=== PATIENT | female | born 1975 | race Caucasian/White ===

== ENCOUNTER → 2016-08-03 | Outpatient (RCR) ==
--- NOTE | 2016-07-29 15:16 | RS.OPPTEV2 ---
Date of Note: 07/27/16 Visit #: 1 Date of Evaluation: 07/27/16 Payer Source: Insurance Treatment Diagnosis: low back pain History of Condition/Mechanism of Injury:: Patient states she fell 16 feet and landed on her back in 1996. States she has continued to have back problems since then. She has not had surgery and has not had therapy to her back. She has received Chiropractic treatment with temporary benefit. Prior Level of Function.....Patient was independent with: ADL's, Self Care, Work /Vocation, Caregiving, Ambulation/Mobility, Community Integration/Access Functional Limitations: Sleep, ADL's, Reaching, Pushing, Pulling, Lifting, Standing, Bending, Ambulation Current Subjective/complaints:: Patient reports having pain mostly in the back. At times it will affect her legs. She denies tingling or numbness or weakness in the legs. States transitioning from sit to stand is one of the most painful activites she does. States activites like working on a ladder or stepping off a curb or step will aggravate her back pain. She uses a TENS unit. She has not had any type of procedures or injections to low back. States she use to run 1/2 marathons, but since increased back pain she cannot tolerate running. States she received traction at the Chiropractor and feels that it helped. Reports difficulty sleeping. She has to sleep on her side. Medical History Surgical History: Tonsillectomy Surgical History Comments:: Gastric Bypass Smoking Status: Former smoker Hx Home Medications: Levothyroxine, Topamax Patient's Goals: Her goal is to get some relief of low back pain. Pain Assessment - Pain Description Pain Location: low back, worse on right side Current Pain Intensity: 3/10 Worst Pain Intensity: 10/10 Functional Outcome Measure Oswestry LBP: 20 - G Codes & Severity Modifier G Codes & Modifier: NA Source of G Code score: NA Observation - Observation Posture: Rounded Shoulders, Decreased Lumbar Lordosis Gait - Gait Pattern General Gait Pattern Observation: No Deviations/Normal - ROM Lumbar Flexion: Hand reach to Mid-Shins Sidebending to Left: Reach to Mid-thigh Sidebending to Right: Reach to Lateral Joint Line Comments: Bilateral LE AROM WFL's. - Strength Trunk Rotation: 4+ Good + Comments: LE strength 4+ to 5/5 - Special Tests ALEX Test: Negative Left, Negative Right SLR Test: Negative Left, Negative Right Jessie's Sign Test: Negative Left, Negative Right Seated Dural Stretch Test: Negative Left, Negative Right SI Joint Compression: Negative Palpation Comments:: Patient reports tenderness at right lumbosacral region. Demonstrates more prominent right SI joint. No significant tenderness reported with palpation along lumbar paraspinals. She demonstrates moderate increased muscle tone along bilateral paraspinals of the lumbar spine. Demonstrates hypomobility througout lumbar spine. Sensation - Sensation Right Lower Extremity: Intact/Normal Left Lower Extremity: Intact/Normal Additional Comments: Additional Comments: SLR bilaterally 50 degrees in supine Interventions - Exercise/Activities/Manual Therapy Exercises/Activities: patient instructed in HS stretch and piriformis stretch Manual Therapy: NA HOME EXERCISE PROGRAM: HS and piriformis stretch - Charges Total Direct Minutes: 45 mins Total Treatment Time: 45 mins Procedures billed for this date of service:: EVAL low Assessment Assessment: Patient presents to therapy with diagnosis of low back pain. She demonstrates hypomobility of the lumbar spine with moderate muscle guarding along the lumbar paraspinals. She demonstrates possible right sacroiliits. She will benefit from modalities and exercises to improved mobility at the lumbar spine and decrease her pain. Short Term Goals Goal #1: Bilateral SLR to 60 degrees. Goal to be met by: 08/12/16 Goal #2: Muscle tone along lumbar spine decreased to minimal. Goal to be met by: 08/12/16 Goal #3: Pt to perform sit to stand transfers with minimal LBP. Goal to be met by: 08/12/16 Tightener Goals Goal #1: Pt knows HEP and to continue ex's to maintain functional status at [place]. Goal to be met by: 09/02/16 Goal #2: Score on Oswestry LBP improved to <16. Goal to be met by: 09/02/16 Goal #3: Patient able to perform all home and work activities w/ minimal pain. Goal to be met by: 09/02/16 Goal #4: Pt able to tolerate prolonged standing to perform activities as needed. Goal to be met by: 09/02/16 Plan - Treatment to be Provided Procedures: Therapeutic Exercises, Therapeutic Activity, Manual Therapy, Patient Education Modalities: Electrical Stimulation, Ultrasound/Phonophoresis, Cryotherapy, Hot Packs, Mechanical Traction (lumbar) - Treatment Plan Frequency: 3 X week Duration: 4 weeks ORDER # VISITS AND/OR THROUGH DATE: 09/02/16 - Treatment Code (1) Low back pain Qualifiers: Chronicity: acute Back pain laterality: unspecified Sciatica presence: unspecified whether sciatica present Qualified Description: Acute low back pain, unspecified back pain laterality, with sciatica presence unspecified Qualifier Code(s): (M54.5) Low back pain (2) Hypertonia Comments: M62.89 moderate muscle guarding lumbar paraspinals
--- NOTE | 2016-07-29 15:29 | RS.OPPTDN ---
Subjective Date of Note: 07/28/16 Visit #: 2 Date of Evaluation: 07/27/16 Payer Source: Insurance Treatment Diagnosis: low back pain Current Subjective/complaints:: Patient with no new reports today. Pain Assessment - Pain Description Pain Location: low back, worse on right side Current Pain Intensity: 3/10 - Treatment Modality: Electrical Stim Unattended Parameters/Method Applied: 4 large pads , uncrossed current to lumbar spine X 20 mins HVGS up to 70 peak volts. Patient Position: Sitting - Heat/Cryotherapy Treatment: Hot Pack (with Estim) Interventions - Exercise/Activities/Manual Therapy Exercises/Activities: Patient received stretching to bilateral HS, piriformis, SKTC, and lower trunk rotation. X 18 mins Manual Therapy: NA HOME EXERCISE PROGRAM: HS and piriformis stretch - Charges Total Direct Minutes: 18 mins Total Treatment Time: 38 mins Procedures billed for this date of service:: hp, Estim, EX Assessment: Patient tolerates stretching well. Discussed continuing with stretching for a few treatments and then adding lumbar traction. Patient Education: Education of diagnosis Patient demonstrates compliance with HEP?: Yes Short Term Goals Goal #1: Bilateral SLR to 60 degrees. Goal to be met by: 08/12/16 Goal #2: Muscle tone along lumbar spine decreased to minimal. Goal to be met by: 08/12/16 Goal #3: Pt to perform sit to stand transfers with minimal LBP. 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 Goal to be met by: 09/02/16 Goal #2: Score on Oswestry LBP improved to <16. Goal to be met by: 09/02/16 Goal #3: Patient able to perform all home and work activities w/ minimal pain. Goal to be met by: 09/02/16 Goal #4: Pt able to tolerate prolonged standing to perform activities as needed. Goal to be met by: 09/02/16 Plan PLAN OF CARE EXPIRES ON:: 09/02/16 ORDER # VISITS AND/OR THROUGH DATE: 09/02/16 PLAN: Continue Plan of Care
--- NOTE | 2016-08-04 09:47 | RS.OPPTDN ---
Subjective Date of Note: 08/03/16 Visit #: 3 Date of Evaluation: 07/27/16 Payer Source: Insurance Treatment Diagnosis: low back pain Current Subjective/complaints:: Patient reports doing fine after the last therapy session. Pain Assessment - Pain Description Pain Location: low back, worse on right side Current Pain Intensity: 3/10 - Treatment Modality: Electrical Stim Unattended Parameters/Method Applied: 4 large pads uncrossed to bilateral lumbar paraspinals X 20 mins HVGS up to 155 peak volts. Patient Position: Sitting - Heat/Cryotherapy Treatment: Hot Pack (with Estim) Interventions - Exercise/Activities/Manual Therapy Exercises/Activities: Patient received stretching to bilateral HS, piriformis, SKTC, and lower trunk rotation. X 20 mins Manual Therapy: NA HOME EXERCISE PROGRAM: HS and piriformis stretch - Charges Total Direct Minutes: 20 Total Treatment Time: 40 mins Procedures billed for this date of service:: HP, Estim, EX Assessment: Patient tolerates Estim and stretching well. Discussed adding in lumbar traction at the next visit or so to help with back pain and mobility. Patient Education: Education of diagnosis, Body/Joint mechanics, Home Exercise Program Patient demonstrates compliance with HEP?: Yes Short Term Goals Goal #1: Bilateral SLR to 60 degrees. Goal to be met by: 08/12/16 Progress towards Goal:: Progressing Goal #2: Muscle tone along lumbar spine decreased to minimal. Goal to be met by: 08/12/16 Progress towards Goal:: Progressing Goal #3: Pt to perform sit to stand transfers with minimal LBP. Goal to be met by: 08/12/16 Prison Goals Goal #1: Pt knows HEP and to continue ex's to maintain functional status at [place]. Goal to be met by: 09/02/16 Goal #2: Score on Oswestry LBP improved to <16. Goal to be met by: 09/02/16 Goal #3: Patient able to perform all home and work activities w/ minimal pain. Goal to be met by: 09/02/16 Goal #4: Pt able to tolerate prolonged standing to perform activities as needed. Goal to be met by: 09/02/16 Plan PLAN OF CARE EXPIRES ON:: 09/02/16 ORDER # VISITS AND/OR THROUGH DATE: 09/02/16 PLAN: Progress Exercises
== END ==
PROVIDERS: ATTEND Family Medicine
DX: M54.5 Low back pain (principal)

== ENCOUNTER 2016-09-02 15:30 | Outpatient (RCR) ==
--- NOTE | 2016-08-06 08:32 | RS.OPPTDN ---
Subjective Date of Note: 08/05/16 Visit #: 4 Date of Evaluation: 07/27/16 Payer Source: Insurance Treatment Diagnosis: low back pain Current Subjective/complaints:: Patient reports no new reports or problems. Following traction, states she could feel a slight pull at the low back. Pain Assessment - Pain Description Pain Location: low back, worse on right side Current Pain Intensity: 3/10 - Treatment Modality: Electrical Stim Unattended Parameters/Method Applied: 4 large pads uncrossed to bilateral lumbar paraspinals X 20 mins HVGS up to 135 peak volts. Patient Position: Sitting - Heat/Cryotherapy Treatment: Hot Pack (with estim) - Traction Treatment Method: Mechanical, Intermittent, Lumbar Patient Position: Supine Amount of Force Applied: 70 lbs. Hold Time: 35 seconds Rest Time: 5 seconds Duration of treatment: 12 mins Traction Treatment Comment: States she could feel a slight pull in low back during traction. Interventions - Exercise/Activities/Manual Therapy Exercises/Activities: Patient received stretching to bilateral HS, piriformis, SKTC, and lower trunk rotation prior to traction. X 10 Manual Therapy: NA HOME EXERCISE PROGRAM: HS and piriformis stretch - Charges Total Direct Minutes: 10 mins Total Treatment Time: 42 mins Procedures billed for this date of service:: Hp, Estim, traction Assessment: Patient began lumbar traction today. She has potential to gain increased mobility of the lumbar spine and decreased pain with use of traction. Will progress poundage and time and also progress exercises for trunk stability. Patient Education: Education of diagnosis, Body/Joint mechanics, Education of Plan of Care Patient demonstrates compliance with HEP?: Yes Short Term Goals Goal #1: Bilateral SLR to 60 degrees. Goal to be met by: 08/12/16 Progress towards Goal:: Progressing Goal #2: Muscle tone along lumbar spine decreased to minimal. Goal to be met by: 08/12/16 Goal #3: Pt to perform sit to stand transfers with minimal LBP. 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 Goal to be met by: 09/02/16 Goal #2: Score on Oswestry LBP improved to <16. Goal to be met by: 09/02/16 Goal #3: Patient able to perform all home and work activities w/ minimal pain. Goal to be met by: 09/02/16 Goal #4: Pt able to tolerate prolonged standing to perform activities as needed. Goal to be met by: 09/02/16 Plan PLAN OF CARE EXPIRES ON:: 09/02/16 ORDER # VISITS AND/OR THROUGH DATE: 09/02/16 PLAN: Continue Plan of Care
--- NOTE | 2016-08-11 11:14 | RS.OPPTDN ---
Subjective Date of Note: 08/10/16 Visit #: 5 Date of Evaluation: 07/27/16 Payer Source: Insurance Treatment Diagnosis: low back pain Current Subjective/complaints:: Patient reports she was a little sore from traction on last visit. States she worked around the house over the weekend and ususally her back would "go out", but it didn't, so something must be helping. Pain Assessment - Pain Description Pain Location: low back, worse on right side Current Pain Intensity: not quantified today - Treatment Modality: Electrical Stim Unattended Parameters/Method Applied: 4 large pads HVGS uncrossed current to the lumbar paraspinals with heat X 20 mins at 110 peak volts. Patient Position: Sitting - Heat/Cryotherapy Treatment: Hot Pack - Traction Treatment Method: Mechanical, Intermittent, Lumbar Patient Position: Supine Amount of Force Applied: 70 lbs. Hold Time: 30 sec Rest Time: 5 sec Duration of treatment: 15 mins Traction Treatment Comment: no complaints following traction treatment Interventions - Exercise/Activities/Manual Therapy Exercises/Activities: Patient received stretching to bilateral HS, piriformis, SKTC, and lower trunk rotation prior to traction. Manual Therapy: NA HOME EXERCISE PROGRAM: HS and piriformis stretch - Charges Total Direct Minutes: 10 mins Total Treatment Time: 45 mins Procedures billed for this date of service:: HP, Estim, mechanical traction Assessment: Patient reports something in therapy must be helping because she was able to work around her home this weekend, without her back "going out". Will plan to progress poundage on lumbar traction and lumbar stability exercises. Short Term Goals Goal #1: Bilateral SLR to 60 degrees. Goal to be met by: 08/12/16 Progress towards Goal:: Progressing Goal #2: Muscle tone along lumbar spine decreased to minimal. Goal to be met by: 08/12/16 Goal #3: Pt to perform sit to stand transfers with minimal LBP. Goal to be met by: 08/12/16 Progress towards Goal:: Progressing Senior Care Goals Goal #1: Pt knows HEP and to continue ex's to maintain functional status at [place]. Goal to be met by: 09/02/16 Goal #2: Score on Oswestry LBP improved to <16. Goal to be met by: 09/02/16 Goal #3: Patient able to perform all home and work activities w/ minimal pain. Goal to be met by: 09/02/16 Goal #4: Pt able to tolerate prolonged standing to perform activities as needed. Goal to be met by: 09/02/16 Plan PLAN OF CARE EXPIRES ON:: 09/02/16 ORDER # VISITS AND/OR THROUGH DATE: 09/02/16 PLAN: Continue Plan of Care
--- NOTE | 2016-08-13 08:24 | RS.OPPTDN ---
Subjective Date of Note: 08/12/16 Date of Evaluation: 07/27/16 Payer Source: Insurance Treatment Diagnosis: low back pain Current Subjective/complaints:: Patient states she is under a lot of stress. Back is doing OK. No new complaints. She feels traction is beneficial. Pain Assessment - Pain Description Pain Location: low back, worse on right side Current Pain Intensity: not quantified today - Treatment Modality: Electrical Stim Unattended Parameters/Method Applied: 4 pads uncrossed current with a lead to each side of the lumbar paraspinals X 20 mins HVGS up to 95 peak volts. Patient Position: Sitting - Heat/Cryotherapy Treatment: Hot Pack ( with Estim) - Traction Treatment Method: Mechanical, Intermittent, Lumbar Patient Position: Supine Amount of Force Applied: 75 lbs. Hold Time: 30 sec Rest Time: 5 sec Duration of treatment: 18 mins Traction Treatment Comment: no complaints following traction treatment today Interventions - Exercise/Activities/Manual Therapy Exercises/Activities: None today Manual Therapy: NA HOME EXERCISE PROGRAM: HS and piriformis stretch - Charges Total Direct Minutes: 0 Total Treatment Time: 38 mins Procedures billed for this date of service:: Hp, Estim, lumbar traction Assessment: Patient reports feeling traction is beneficial. No significant reports of any specific increased or decreased pain today. Will continue progression of traction and exercises to reduce low back pain. Patient Education: Education of diagnosis, Body/Joint mechanics, Home Exercise Program, Education of Plan of Care Patient demonstrates compliance with HEP?: Yes Short Term Goals Goal #1: Bilateral SLR to 60 degrees. Goal to be met by: 08/12/16 Progress towards Goal:: Progressing Goal #2: Muscle tone along lumbar spine decreased to minimal. Goal to be met by: 08/12/16 Progress towards Goal:: Progressing Goal #3: Pt to perform sit to stand transfers with minimal LBP. Goal to be met by: 08/12/16 Progress towards Goal:: Progressing Correction Goals Goal #1: Pt knows HEP and to continue ex's to maintain functional status at [place]. Goal to be met by: 09/02/16 Goal #2: Score on Oswestry LBP improved to <16. Goal to be met by: 09/02/16 Goal #3: Patient able to perform all home and work activities w/ minimal pain. Goal to be met by: 09/02/16 Goal #4: Pt able to tolerate prolonged standing to perform activities as needed. Goal to be met by: 09/02/16 Plan PLAN OF CARE EXPIRES ON:: 09/02/16 ORDER # VISITS AND/OR THROUGH DATE: 09/02/16 PLAN: Continue Plan of Care (progress pull and time on traction)
--- NOTE | 2016-08-18 16:19 | RS.OPPTDN ---
Subjective Date of Note: 08/17/16 Date of Evaluation: 07/27/16 Payer Source: Insurance Treatment Diagnosis: low back pain Current Subjective/complaints:: Patient states her back is sore. States she backed into her wall oven over the weekend. She believes therapy is helping. Pain Assessment - Pain Description Pain Location: low back, worse on right side Current Pain Intensity: sore today - Treatment Modality: Electrical Stim Unattended Parameters/Method Applied: 4 pads uncrossed to low back X 20 mins HVGS up to 155 peak volts. Patient Position: Sitting - Heat/Cryotherapy Treatment: Hot Pack (with Estim to LB) - Traction Treatment Method: Mechanical, Intermittent, Lumbar Patient Position: Supine Amount of Force Applied: 75 Hold Time: 45 seconds Rest Time: 5 seconds Duration of treatment: 18 mins Interventions - Exercise/Activities/Manual Therapy Exercises/Activities: Patient assisted with stretching to HS and Piriformis X 9 mins. Manual Therapy: NA HOME EXERCISE PROGRAM: HS and piriformis stretch - Charges Total Direct Minutes: 9 mins Total Treatment Time: 47 mins Procedures billed for this date of service:: hp, estim, mechanical traction Assessment: Patient tolerates continued progression of pull and time on lumbar traction well. She is sore today from backing into a wall oven. Patient Education: Education of diagnosis, Body/Joint mechanics, Education of Plan of Care Short Term Goals Goal #1: Bilateral SLR to 60 degrees. Goal to be met by: 08/12/16 Progress towards Goal:: Progressing Goal #2: Muscle tone along lumbar spine decreased to minimal. Goal to be met by: 08/12/16 Progress towards Goal:: Progressing Goal #3: Pt to perform sit to stand transfers with minimal LBP. Goal to be met by: 08/12/16 Progress towards Goal:: Progressing [facility] Goals Goal #1: Pt knows HEP and to continue ex's to maintain functional status at [place]. Goal to be met by: 09/02/16 Goal #2: Score on Oswestry LBP improved to <16. Goal to be met by: 09/02/16 Goal #3: Patient able to perform all home and work activities w/ minimal pain. Goal to be met by: 09/02/16 Progress towards goal: Progressing Goal #4: Pt able to tolerate prolonged standing to perform activities as needed. Goal to be met by: 09/02/16 Progress towards goal: Progressing Plan PLAN OF CARE EXPIRES ON:: 09/02/16 ORDER # VISITS AND/OR THROUGH DATE: 09/02/16 PLAN: Progress Exercises
--- NOTE | 2016-08-20 08:41 | RS.OPPTDN ---
Subjective Date of Note: 08/19/16 Date of Evaluation: 07/27/16 Payer Source: Insurance Treatment Diagnosis: low back pain Current Subjective/complaints:: Patient continues to report therapy seems to help her back. No new reports of problems today. Pain Assessment - Pain Description Pain Location: low back, worse on right side Current Pain Intensity: low - Treatment Modality: Electrical Stim Unattended Parameters/Method Applied: 4 large pads, uncrossed to lumbar spine X 20 mins HVGS @ 145 peak volts. Patient Position: Sitting - Heat/Cryotherapy Treatment: Hot Pack (with Estim to low back ) - Traction Treatment Method: Mechanical, Intermittent, Lumbar Patient Position: Supine Amount of Force Applied: 80 Hold Time: 45 seconds Rest Time: 5 seconds Duration of treatment: 20 mins Interventions - Exercise/Activities/Manual Therapy Exercises/Activities: NA Manual Therapy: NA HOME EXERCISE PROGRAM: HS and piriformis stretch - Charges Total Direct Minutes: 0 Total Treatment Time: 40 mins Procedures billed for this date of service:: hp, estim, mechanical traction Assessment: Continuing to progress traction pull and time. Patient tolerates increased poundage well. She demonstrates potential to benefit from further therapy with progressed trunk/lumbar stability. Short Term Goals Goal #1: Bilateral SLR to 60 degrees. Goal to be met by: 08/12/16 Progress towards Goal:: Progressing Goal #2: Muscle tone along lumbar spine decreased to minimal. Goal to be met by: 08/12/16 Progress towards Goal:: Progressing Goal #3: Pt to perform sit to stand transfers with minimal LBP. Goal to be met by: 08/12/16 Progress towards Goal:: Partially Met Comments:: Dependent on activities that day. 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 Goal to be met by: 09/02/16 Goal #2: Score on Oswestry LBP improved to <16. Goal to be met by: 09/02/16 Goal #3: Patient able to perform all home and work activities w/ minimal pain. Goal to be met by: 09/02/16 Progress towards goal: Progressing Goal #4: Pt able to tolerate prolonged standing to perform activities as needed. Goal to be met by: 09/02/16 Progress towards goal: Progressing Plan PLAN OF CARE EXPIRES ON:: 09/02/16 ORDER # VISITS AND/OR THROUGH DATE: 09/02/16 PLAN: Progress Exercises
--- NOTE | 2016-08-25 08:49 | RS.OPPTDN ---
Subjective Date of Note: 08/23/16 Date of Evaluation: 07/27/16 Payer Source: Insurance Treatment Diagnosis: low back pain Current Subjective/complaints:: Feels traction is helping her low back. She agrees for us to keep progressing the pull amount. After getting done with traction today, she states the back feels good. Pain Assessment - Pain Description Pain Location: low back, worse on right side Current Pain Intensity: low - Treatment Modality: Electrical Stim Unattended Parameters/Method Applied: 4 large pads uncrossed to the lumbar spine X 20 mins HVGS up to 140 peak volts. Patient Position: Sitting - Heat/Cryotherapy Treatment: Hot Pack (with Estim to low back prior to traction) - Traction Treatment Method: Mechanical, Intermittent, Lumbar Patient Position: Supine Amount of Force Applied: 80 lbs. Hold Time: 45 sec Rest Time: 5 sec Duration of treatment: 20 mins Traction Treatment Comment: States her back feels good following traction. Interventions - Exercise/Activities/Manual Therapy Exercises/Activities: Reviewed HEP of stretching. Manual Therapy: NA HOME EXERCISE PROGRAM: HS and piriformis stretch - Charges Total Direct Minutes: 5 mins Total Treatment Time: 45 mins Procedures billed for this date of service:: HP, Estim, Traction Assessment: Patient feels traction is helping her low back. Short Term Goals Goal #1: Bilateral SLR to 60 degrees. Goal to be met by: 08/12/16 Progress towards Goal:: Progressing Goal #2: Muscle tone along lumbar spine decreased to minimal. Goal to be met by: 08/12/16 Progress towards Goal:: Progressing Goal #3: Pt to perform sit to stand transfers with minimal LBP. Goal to be met by: 08/12/16 Progress towards Goal:: Partially Met [facility] Goals Goal #1: Pt knows HEP and to continue ex's to maintain functional status at [place]. Goal to be met by: 09/02/16 Goal #2: Score on Oswestry LBP improved to <16. Goal to be met by: 09/02/16 Goal #3: Patient able to perform all home and work activities w/ minimal pain. Goal to be met by: 09/02/16 Progress towards goal: Progressing Goal #4: Pt able to tolerate prolonged standing to perform activities as needed. Goal to be met by: 09/02/16 Progress towards goal: Progressing Plan PLAN OF CARE EXPIRES ON:: 09/02/16 ORDER # VISITS AND/OR THROUGH DATE: 09/02/16 PLAN: Continue Plan of Care
--- NOTE | 2016-08-27 08:29 | RS.OPPTDN ---
Subjective Date of Note: 08/26/16 Date of Evaluation: 07/27/16 Payer Source: Insurance Treatment Diagnosis: low back pain Current Subjective/complaints:: Patient reports interest in the possibility of getting a home lumbar traction unit. She feels the traction has helped her back. Pain Assessment - Pain Description Pain Location: low back, worse on right side Current Pain Intensity: low - Treatment Modality: Electrical Stim Unattended Parameters/Method Applied: 4 pads uncrossed to lumbar paraspinals X 20 mins HVGS up to 150 peak volts Patient Position: Sitting - Heat/Cryotherapy Treatment: Hot Pack (with estim to low back) - Traction Treatment Method: Mechanical, Intermittent, Lumbar Patient Position: Supine Amount of Force Applied: 80 lbs. Hold Time: 45 seconds Rest Time: 5 seconds Duration of treatment: 20 mins Traction Treatment Comment: States back feels better following traction Interventions - Exercise/Activities/Manual Therapy Exercises/Activities: Reviewed HEP of stretching. Discussed home traction device and if insurance will cover it with it being DME. Manual Therapy: NA HOME EXERCISE PROGRAM: HS and piriformis stretch - Charges Total Direct Minutes: 5 mins Total Treatment Time: 45 mins Procedures billed for this date of service:: HP, Estim, mechanical traction Assessment: Patient continues to report benefit from lumbar traction. She is interested in a home unit, which she would benefit from to decrease future low back flare ups. Patient Education: Education of diagnosis, Body/Joint mechanics Patient demonstrates compliance with HEP?: Yes Short Term Goals Goal #1: Bilateral SLR to 60 degrees. Goal to be met by: 08/12/16 Progress towards Goal:: Progressing Goal #2: Muscle tone along lumbar spine decreased to minimal. Goal to be met by: 08/12/16 Progress towards Goal:: Progressing Goal #3: Pt to perform sit to stand transfers with minimal LBP. 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 Goal to be met by: 09/02/16 Goal #2: Score on Oswestry LBP improved to <16. Goal to be met by: 09/02/16 Goal #3: Patient able to perform all home and work activities w/ minimal pain. Goal to be met by: 09/02/16 Progress towards goal: Progressing Goal #4: Pt able to tolerate prolonged standing to perform activities as needed. Goal to be met by: 09/02/16 Progress towards goal: Progressing Plan PLAN OF CARE EXPIRES ON:: 09/02/16 ORDER # VISITS AND/OR THROUGH DATE: 09/02/16 PLAN: Continue Plan of Care Comments:: Will look into a lumbar traction unit and if insurance will cover it.
--- NOTE | 2016-08-31 13:13 | RS.OPPTDN ---
Subjective Date of Note: 08/30/16 Date of Evaluation: 07/27/16 Payer Source: Insurance Treatment Diagnosis: low back pain Current Subjective/complaints:: Joycelyn states traction has definitely helped her back. States that with very much work around her house, she would usually be hurting more, but the traction has kept her back from getting really aggravated. She would like to be able to have a lumbar traction unit at home. Pain Assessment - Pain Description Pain Location: low back, worse on right side Current Pain Intensity: low - Treatment Modality: Electrical Stim Unattended Parameters/Method Applied: 4 large pads uncrossed current to lumbar paraspinals X 20 mins HVGS to relax muscles prior to using traction. Patient Position: Sitting - Heat/Cryotherapy Treatment: Hot Pack (with Estim to lumbar spine) - Traction Treatment Method: Mechanical, Intermittent, Lumbar Patient Position: Supine Amount of Force Applied: 82 lbs. Hold Time: 45 seconds Rest Time: 5 seconds Duration of treatment: 20 mins Traction Treatment Comment: Continues to report less back pain following traction to lumbar spine Interventions - Exercise/Activities/Manual Therapy Exercises/Activities: Reviewed HEP of stretching. Demonstrates improved HS flexibility. Manual Therapy: NA HOME EXERCISE PROGRAM: HS and piriformis stretch - Objective Findings Observations,measurements,etc.: Muscle tone along lumbar paraspinals decreased to minimal. SLR bilaterally to 50-55 degrees in supine. - Charges Total Direct Minutes: 5 mins Total Treatment Time: 45 mins Procedures billed for this date of service:: HP, Estim, mechanical traction Assessment: Patient demonstrates improved HS flexibility. She also demonstrates decreased muscle tone along the lumbar spine to minimal. She has continued to report decreased back pain with use of lumbar traction. I think she would greatly benefit from a home lumbar traction device to use as needed to help alleviate her low back pain. Patient Education: Education of diagnosis, Body/Joint mechanics, Home Exercise Program, Education of Plan of Care Patient demonstrates compliance with HEP?: Yes Short Term Goals Goal #1: Bilateral SLR to 60 degrees. Goal to be met by: 08/12/16 Progress towards Goal:: Progressing Goal #2: Muscle tone along lumbar spine decreased to minimal. Goal to be met by: 08/12/16 Progress towards Goal:: Met Goal #3: Pt to perform sit to stand transfers with minimal LBP. 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 Goal to be met by: 09/02/16 Goal #2: Score on Oswestry LBP improved to <16. Goal to be met by: 09/02/16 Goal #3: Patient able to perform all home and work activities w/ minimal pain. Goal to be met by: 09/02/16 Progress towards goal: Progressing Goal #4: Pt able to tolerate prolonged standing to perform activities as needed. Goal to be met by: 09/02/16 Progress towards goal: Progressing Plan PLAN OF CARE EXPIRES ON:: 09/02/16 ORDER # VISITS AND/OR THROUGH DATE: 09/02/16 PLAN: Continue Plan of Care
--- NOTE | 2016-09-03 09:40 | RS.OPPTDN ---
Subjective Date of Note: 09/02/16 Visit #: 12 Date of Evaluation: 07/27/16 Payer Source: Insurance Treatment Diagnosis: low back pain Current Subjective/complaints:: Patient reports lumbar traction has really helped her low back pain. States her pain is much less and the traction seems to have prevented her from aggravating her back with daily activities, when without it she feels like she would have. Pain Assessment - Pain Description Current Pain Intensity: low Other Comments regarding Pain:: Low to none following traction - Treatment Modality: Electrical Stim Unattended Parameters/Method Applied: 4 large pads x 20 mins HVGS to the lumbar paraspinals up to 145 peak volts. Patient Position: Sitting Comments: treatment with estim/hp continued to prepare muscles for traction - Heat/Cryotherapy Treatment: Hot Pack (X 20 mins) - Traction Treatment Method: Mechanical, Intermittent, Lumbar Patient Position: Supine Amount of Force Applied: 82 lbs. Hold Time: 45 seconds Rest Time: 5 seconds Duration of treatment: 20 mins Traction Treatment Comment: minimal to no pain following traction Interventions - Exercise/Activities/Manual Therapy Exercises/Activities: Reviewed HEP of stretching. Patient demos. independence with HEP. Manual Therapy: NA HOME EXERCISE PROGRAM: HS and piriformis stretch - Objective Findings Observations,measurements,etc.: SLR bilaterally 55-60 degrees. - Charges Total Direct Minutes: 9 mins Total Treatment Time: 49 mins Procedures billed for this date of service:: HP, Estim, mechanical traction Assessment: Patient reports significant decrease in back pain with use of lumbar traction. She reports being able to perform daily activities without aggravating her back. She has dealt with back pain since 1996 and demonstrates to be someone who would greatly benefit from a home lumbar traction unit to maintain her low level of back pain and also be able decrease future episodes of flare ups. Patient Education: Education of diagnosis, Body/Joint mechanics, Home Exercise Program, Education of Plan of Care Short Term Goals Goal #1: Bilateral SLR to 60 degrees. Goal to be met by: 08/12/16 Progress towards Goal:: Met Goal #2: Muscle tone along lumbar spine decreased to minimal. Goal to be met by: 08/12/16 Progress towards Goal:: Met Goal #3: Pt to perform sit to stand transfers with minimal LBP. 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 Goal to be met by: 09/02/16 Progress towards goal: Met Goal #2: Score on Oswestry LBP improved to <16. Goal to be met by: 09/02/16 Progress towards goal: Partially Met Goal #3: Patient able to perform all home and work activities w/ minimal pain. Goal to be met by: 09/02/16 Progress towards goal: Met Goal #4: Pt able to tolerate prolonged standing to perform activities as needed. Goal to be met by: 09/02/16 Progress towards goal: Partially Met Comments: Still somewhat dependent on activity level. Plan PLAN OF CARE EXPIRES ON:: 09/02/16 ORDER # VISITS AND/OR THROUGH DATE: 09/02/16 PLAN: Plan for Discharge
--- NOTE | 2016-09-03 09:42 | RS.QUICKDC ---
Discharge from PT Date of Discharge: 09/02/16 Number of Visits: 12 Reason for Discharge: Patient attended therapy consistently for treatment to the low back. She demonstrated consistent benefit with treatment of lumbar traction. She made great progress towards all goals. She is able to continue her HEP of stretching to maintain flexibility in the low back and HS. Recommend home lumbar traction unit for home.
== END 2016-09-03 ==
PROVIDERS: ATTEND Family Medicine
DX: M54.5 Low back pain (principal); G89.29 Other chronic pain